=== PATIENT | male | born 1970 | race Caucasian/White ===

== ENCOUNTER 2022-05-01 00:24 | Day surgery (SDC) | payer OTHER, SELFPAY ==
[2022-04-16 10:16] VITALS: BMI 29.9
[2022-05-01 08:25] VITALS: BP 134/74; PULSE 77; RESP 18; TEMP 36.4; O2SAT 97
[2022-05-01] MEDS: LACTATED RINGERS 1,000 ML 150 ML IV CONT (08:32)
--- NOTE | 2022-05-01 08:55 | P.PNAN_ITS ---
Anes - Initial Pre Proc Eval Procedure: Operation Date: 05/01/22 09:30 Proposed Procedures p Screening Colonoscopy - Sourav Lanier MD Date/Time: 05/01/22 08:55 Surgeon: Sourav Lanier MD Pre Op Diagnosis: neoplasm screening Patient Data Age: 51 Gender: M Height: 1.83 m Weight: 110.2 kg Last Vital Signs Temp 97.6 F 05/01/22 08:25 Pulse 77 05/01/22 08:25 Resp 18 05/01/22 08:25 BP 134/74 05/01/22 08:25 Pulse Ox 97 05/01/22 08:25 O2 Del Method Room Air 05/01/22 08:25 Allergies Allergy/AdvReac Type Severity Reaction Status Date / Time poison sumac extract Allergy RASH Verified 05/01/22 08:21 Home Medications Medication Instructions Recorded Confirmed Type alprazolam 1 mg tablet 1 mg PO BID PRN Anxiety 04/16/22 04/16/22 History aspirin 81 mg capsule 81 mg PO DAILY 04/16/22 04/16/22 History famotidine 20 mg tablet 20 mg PO BID 04/16/22 04/16/22 History hydrocodone 10 mg-acetaminophen 1 tablet PO QID PRN Pain 04/16/22 04/16/22 History 325 mg tablet rosuvastatin 20 mg tablet 20 mg PO DAILY 04/16/22 04/16/22 History tadalafil 20 mg tablet 20 mg PO PRN PRN Erectile 04/16/22 04/16/22 History Dysfunction Patient hx anesthesia problems: none Family hx anesthesia problems: none Results Review: All pre-operative results and documents have been reviewed as part of the pre- operative evaluation. [facility] Family History Family History (Updated 06/06/11 @ 14:43 by DOCTOR UNKNOWN) Other Diabetes mellitus Family history of cardiovascular disease Social History Social History Smoking packs per day: 1 Smoking cigarettes per day: 20.0 Years smoked: 30 Smoking pack-years: 30.00 Smoking status: Current every day smoker Tobacco type: cigarettes Alcohol intake: never Substance use: never Substance use type: does not use Living arrangements: with family Spiritual care concerns: No Anes - Eval Final PreProcedure Day of Procedure 05/01/22 08:55 Patient weight: obese Heart: regular rate and rhythm Lungs: clear to auscultation Airway: Mallampati scale Neurological: alert and oriented Last oral intake: >/= 8 hours ASA classification: III Emergent: no Anesthetic plan: proceed Anesthesia type and monitoring: general GIVS and standard monitoring Results Review: All pre-operative results and documents have been reviewed as part of the pre- operative evaluation. Informed Consent: The patient's anesthetic plan and its attendant risks and benefits were discussed with the patient/family/POA. Questions were solicited and answers provided to the satisfaction of the patient/family/POA.
--- NOTE | 2022-05-01 09:06 | PM.HPGS ---
History of Present Illness History of Present Illness Consent: Risks, benefits, and alternatives have been discussed and questions answered. Patient agrees to proceed with procedure. Chief complaint: neoplasm screening Narrative: Forrest Bell is a 51 year old male here for first screening colonoscopy Review of Systems Constitutional: Constitutional: Denies headache(s) and Denies weakness Eyes: Eyes: Denies blurry vision ENT: Reports Normal hearing present, Denies headache(s) and Denies neck pain Cardiovascular: Cardiovascular: Denies chest pain and Denies dyspnea Respiratory: Respiratory: Denies dyspnea Gastrointestinal: Gastrointestinal: Reports no additional gastrointestinal complaints Genitourinary: Genitourinary: Denies dysuria Musculoskeletal: Musculoskeletal: Denies neck pain Integumentary/Breasts: Skin/Breast: Denies dry skin Neurologic: Reports Normal hearing present, Denies headache(s) and Denies weakness Psychiatric: Psychiatric: Denies anxiety Endocrine: Endocrine: Denies change in body appearance Hematologic/Lymphatic: Hematologic/Lymphatic: Denies easy bleeding Allergic/Immunologic: Allergic/Immunologic: Denies urticaria [facility] Past Medical History Medical History (Updated 05/01/22 @ 09:06 by Sourav Lanier MD) Colon cancer screening Family History Family History (Updated 06/06/11 @ 14:43 by DOCTOR UNKNOWN) Other Diabetes mellitus Family history of cardiovascular disease Social History Social History Smoking packs per day: 1 Smoking cigarettes per day: 20.0 Years smoked: 30 Smoking pack-years: 30.00 Smoking status: Current every day smoker Tobacco type: cigarettes Alcohol intake: never Substance use: never Substance use type: does not use Living arrangements: with family Spiritual care concerns: No Meds Home Medications and Allergies Home Medications Medication Instructions Recorded Confirmed Type alprazolam 1 mg tablet 1 mg PO BID PRN Anxiety 04/16/22 04/16/22 History aspirin 81 mg capsule 81 mg PO DAILY 04/16/22 04/16/22 History famotidine 20 mg tablet 20 mg PO BID 04/16/22 04/16/22 History hydrocodone 10 mg-acetaminophen 1 tablet PO QID PRN Pain 04/16/22 04/16/22 History 325 mg tablet rosuvastatin 20 mg tablet 20 mg PO DAILY 04/16/22 04/16/22 History tadalafil 20 mg tablet 20 mg PO PRN PRN Erectile 04/16/22 04/16/22 History Dysfunction Allergies Allergy/AdvReac Type Severity Reaction Status Date / Time poison sumac extract Allergy RASH Verified 05/01/22 08:21 Vital Signs Vital Signs - 24 hr 05/01/22 08:25 Temperature 97.6 F Pulse Rate 77 Respiratory Rate 18 Blood Pressure 134/74 Pulse Oximetry 97 Oxygen Delivery Room Air Exam Const: General: comfortable and no acute distress HENMT: General nose exam: Normal nares present Eyes: General: appearance normal, both eyes and all related structures Neck: Neck: no JVD Resp: Auscultation: clear to auscultation bilaterally Cardio: Rate: regular rate Rhythm: regular rhythm GI: Inspection: non-distended GI Palp: Yes Soft to palpation Skin: General skin exam: normal color Neuro: General: gait normal Speech: normal speech Extrem: General: normal to inspection Psych: Mental Status: mental status grossly normal Assessment and Plan Assessment and plan (1) Colon cancer screening: Code(s): Z12.11 - Encounter for screening for malignant neoplasm of colon Status: Acute Assessment and Plan: colonoscopy
[2022-05-01 09:37] VITALS: BP 113/75; PULSE 55; RESP 20; O2SAT 97
[2022-05-01 09:47] VITALS: BP 125/83; PULSE 53; RESP 23; O2SAT 96
[2022-05-01 09:57] VITALS: BP 126/89; PULSE 54; RESP 21; O2SAT 98
== END 2022-05-01 10:07 | disposition home or self-care (01) ==
PROVIDERS: PCP Emergency Medicine; Visit Provider Internal Medicine Gastroenterology
PROC: 0DJD8ZZ Inspection of Lower Intestinal Tract, Via Natural or Artificial Opening Endoscopic (ICD-10-PCS; CPT 45378; principal; 2022-05-01 09:30)
DX: Z12.11 Encounter for screening for malignant neoplasm of colon (principal); D12.2 Benign neoplasm of ascending colon; D12.5 Benign neoplasm of sigmoid colon; K64.8 Other hemorrhoids; F17.210 Nicotine dependence, cigarettes, uncomplicated; Z79.82 Long term (current) use of aspirin; E66.9 Obesity, unspecified; Z68.32 Body mass index [BMI] 32.0-32.9, adult
CPT/HCPCS: 45385; 88305; J2704; J7120

== ENCOUNTER 2023-02-12 08:01 | Outpatient (CLI) | payer OTHER, SELFPAY ==
--- NOTE | ~2023-02-12 | CT_ITS ---
CT Scan of the Chest without Contrast: Clinical Indication: Lung cancer screening, history of nicotine dependence Technique: Contiguous sections were acquired throughout the chest without intravenous contrast. Dose reduction technique was used on this scan by utilizing automated exposure control and iterative recon struction technique. The dose-length product (DLP) was 283.41 mGy-cm. Findings: There is no evidence of any significant mediastinal, hilar or axillary lymphadenopathy. Calcified med iastinal lymph nodes are noted. The mediastinal soft tissues otherwise appear normal. There is no evidence of pleural or pericardial effusion. There is a circumscribed 1.1 cm noncalcified nodule along the right lung base (axial image 100, coron al image 91). Calcified left upper lobe granulomas noted. There is mild emphysematous change in the u pper lobes. Images through the upper abdomen reveal 3.9 cm low-density left adrenal lesion, consistent with adeno ma. Impression: 1.1 cm pleural-based circumscribed nodule the right lung base, as detailed above. According to Fleisc hner Society criteria, consider follow-up [address] scan or PET/CT. Tissue sampling would be very di fficult given location and size of the lesion. Evidence of prior granulomatous of disease. 3.9 cm left adrenal adenoma. Reviewed, dictated and finalized at [facility]. Impression: 1.1 cm pleural-based circumscribed nodule the right lung base, as detailed abov e. According to Fleischner Society criteria, consider follow-up [address] scan or PET/CT. Tissue sampling would be very difficult given location and size of the lesion. Evidence of prior granulomatous of disease. 3.9 cm left adrenal adenoma.
== END 2023-02-12 08:02 | disposition home or self-care (01) ==
PROVIDERS: PCP Emergency Medicine; Visit Provider Emergency Medicine
DX: Z12.2 Encounter for screening for malignant neoplasm of respiratory organs (principal); Z87.891 Personal history of nicotine dependence; R91.8 Other nonspecific abnormal finding of lung field; D35.02 Benign neoplasm of left adrenal gland
CPT/HCPCS: 71271

== ENCOUNTER 2024-04-17 09:31 | Outpatient (CLI) | payer OTHER, SELFPAY ==
--- NOTE | ~2024-04-17 | CT_ITS ---
CT Scan of the Chest without Contrast: Clinical Indication: Lung cancer screening, nicotine dependence Technique: Contiguous sections were acquired throughout the chest without intravenous contrast. Dose reduction technique was used on this scan by utilizing automated exposure control and iterative recon struction technique. The dose-length product (DLP) was 286.52 mGy-cm. COMPARISON: 02/12/2023 Findings: There is no evidence of any significant mediastinal, hilar or axillary lymphadenopathy. The mediastin al soft tissues appear normal. There is no evidence of pleural or pericardial effusion. There is mild to moderate emphysema. Calcified left upper lobe granuloma present. Stable 1.1 cm right basilar pulmonary nodule. Images through the upper abdomen reveal a 4 cm left adrenal myelolipoma. Impression: Lung RADS 2: Benign appearance. 12 month follow-up screening CT advised. Reviewed, dictated and finalized at [facility]. Impression: Lung RADS 2: Benign appearance. 12 month follow-up screening CT advised.
== END 2024-04-17 09:32 | disposition home or self-care (01) ==
PROVIDERS: PCP Emergency Medicine; Visit Provider Emergency Medicine
DX: Z12.2 Encounter for screening for malignant neoplasm of respiratory organs (principal); Z87.891 Personal history of nicotine dependence
CPT/HCPCS: 71271

== ENCOUNTER 2025-08-09 10:47 | Outpatient (CLI) | payer OTHER, SELFPAY ==
--- NOTE | ~2025-08-09 | CT_ITS ---
EXAMINATION:CT lung screening DATE: 08/09/2025 11:04 INDICATION: Personal history of nicotine dependence. Current smoker with 39 pack year history. TECHNIQUE: Computed tomography (CT) of the chest was performed without intravenous contrast. Automated exposure control and iterative reconstruction technique were employed. The dose-length product (DLP) was 224.12 mGy-cm. COMPARISON: Chest CT 04/17/2024, 02/12/23 FINDINGS: There is moderate emphysema. There is mild atelectasis bilaterally. Calcified left lung nodules and calcified left hilar lymph nodes are consistent with old granulomatous disease. There is a chronic 10 mm nodule at right lung base. There is a 3 mm nodule in right upper lobe. There is a 2 mm nodule in right upper lobe. There is a 3 mm nodule in left upper lobe. No pleural effusion. The heart size is normal. There are coronary artery calcifications. No pericardial effusion. There are changes of cholecystectomy. There is a 4.7 cm mass in the left adrenal gland containing fat, consistent with a myelolipoma. There is mild thoracic spondylosis. There is mild chronic anterior wedging of multiple vertebral bodies. IMPRESSION: 1. Lung-RADS category 2: Benign appearance or behavior. Continue annual screening with noncontrast low-dose chest CT in 12 months. Reviewed, dictated and finalized at location E. IMPRESSION: 1. Lung-RADS category 2: Benign appearance or behavior. Continue annual screeni ng with noncontrast low-dose chest CT in 12 months.
--- OUTSIDE RECORDS SUMMARY | 2025-08-09 12:32 | XMS_ITS | Clinical Summary ---
Author Organization [facility] al Address [address] [place] [address] Care Team Providers Care Wad Blanking Press Adjuster Name Role Phone Gilberto Arana MD Primary Care Provider [phone] Allergies Active Allergy Reactions Criticality Noted Date Comments Poison Florecita Extract Hives,Itching,Other (See comments) Medium 10/24/2018 Also get white pus pockets Medications ALPRAZolam (XANAX) 1 mg tablet TAKE 1 TABLET BY MOUTH TWICE A DAY AVOID DRIVING/OPERATING MACHINES 0 8 Active atorvastatin (LIPITOR) 80 mg tablet Take 1 tablet (80 mg total) by mouth daily 1 8 Active HYDROcodone-ac etaminophen (NORCO) 10-325 mg per tabletIndicati ons:Pain TAKE 1 TABLET BY MOUTH EVERY 6 HOURS NEEDED FOR PAIN AVOID DRIVING/OPERATING MACHINES 0 8 Active pantoprazole (PROTONIX) [address] for susp in packet Active HYDROcodone-ac etaminophen (VICODIN) 5-300 mg per tablet Active raNITIdine (ZANTAC) 75 mg tablet Active nicotine (NICODERM CQ) 14 mg APPLY 1 PATCH EVERY DAY 0 9 Active famotidine (PEPCID) 20 mg tablet 0 Active rosuvastatin (CRESTOR) 20 mg tablet 0 Active amoxicillin (AMOXIL) 875 mg tablet Take 875 mg by mouth every 12 (twelve) hours 0 Active aspirin 81 mg chewable tablet Take 1 tablet (81 mg total) by mouth daily Active albuterol HFA (Ventolin HFA) 90 mcg/actuation inhaler inhale 2 puff by inhalation route every 4 - 6 hours as needed as needed 3 Active sildenafiL (VIAGRA) 100 mg tablet TAKE ONE TABLET BY MOUTH APPROXIMATELY ONE HOUR BEFORE SEXUAL ACTIVITY. DO NOT USE MORE THAN ONE DOSE DAILY Active Active Problems Problem Noted Date Diagnosed Date Pheochromocytoma 06/12/2011 Surgical History Surgery Date Site/Laterality Comments ANKLE SURGERY Ankle Surgery - (Added by ALISON Conv) KNEE SURGERY Knee Surgery - (Added by ALISON Conv) Family History Medical History Relation Name Comments Cancer Father Diabetes Father Hypertension Father Diabetes Mother Hypertension Mother Relation Name Status Comments Father Mother Social History Tobacco Use Types Packs/Day Years Used Date Smoking Tobacco: Every Day Cigarettes 1 36 Smokeless Tobacco: Current Tobacco Cessation:Ready to Q uit: Not Asked; Counseling Given: Not Answered Comments: pack hx / Smoker Alcohol Use Standard Drinks/Week Comments Not Currently 0 (1 standard drink = 0.6 oz pur e alcohol) Sex and Gender Information Value Date Recorded Sex Assigned at Not on file 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 Gender Identity Not on file Sexual Orientation Not on file Obstetrics History Last Filed Vital Signs Vital Sign Reading Time Taken Comments Blood Pressure 158/78 09/18/2024 1:22 PM CDT Pulse 68 09/18/2024 1:22 PM CDT Temperature 36.5 C (97.7 F) 09/18/2024 1:22 PM CDT Respiratory Rate 16 09/18/2024 1:22 PM CDT Oxygen Saturation 96% 09/18/2024 1:22 PM CDT Inhaled Oxygen Concentration - - Weight 102.5 kg (226 lb) 09/18/2024 1:22 PM CDT Height 182.9 cm (6') 09/18/2024 1:22 PM CDT Body Mass Index 30.65 09/18/2024 1:22 PM CDT Plan of Treatment Health Maintenance Due Date Last Done Comments Colon Cancer Screening-Colonoscopy 1971 Depression Screening 1971 Hepatitis C Screening 1971 Prostate Cancer Screening-PSA 1971 DTaP/Tdap/Td Vaccine (1 - Tdap) 1982 Hepatitis B Screening 1989 Regular Well Visit/Exam 18-64 1989 Pneumococcal vaccine <65 (1 of 2 - PCV) 1990 Lung Cancer Screening 2021 Zoster Vaccine (1 of 2) 2021 Influenza Vaccine (#1) 2025 Insurance [facility] Care Teams Wad Blanking Press Adjuster Relationship Specialty Start Date End Date Gilberto Arana MD PCP - General 05/22/17
--- OUTSIDE RECORDS SUMMARY | 2025-08-09 12:32 | XMS_ITS | Clinical Summary ---
Author Organization [facility] Address [address] [place] [address] Care Team Providers Care Retirement Plan Specialist Name Role Phone Gilberto Arana MD Primary Care Provider [phone] Source Comments [facility],non-owned Affiliates and Associated Physician Practices is amultiple site organization consisting of ambulatory clinics and hospital sitesin [place], [place], [place] and [place]. This disclosure is being madepursuant to the Care Everywhere program and may not contain all information available regarding this patient. Last updated 18.[facility] Allergies Active Allergy Reactions Criticality Noted Date Comments Extract Of Poison Florecita Urticaria,Itching Medium 018 Also get white pus pockets Medications * Be aware that medications may not be up to date on this document. Alwaysverify current medications with the patient. ALPRAZolam (XANAX) 1 MG tablet Take 1 (one) tablet by mouth 2 times daily as needed 1 Active aspirin (ASPIRIN) 81 MG chew tablet Take 1 (one) tablet by mouth once daily Active famotidine (PEPCID) 20 MG tablet Take 1 (one) tablet by mouth every 12 hours 0 Active HYDROcodone-ac etaminophen (NORCO) 10-325 MG tablet Take 1 (one) tablet by mouth 4 times daily as needed 1 Active rosuvastatin (CRESTOR) 20 MG tablet Take 1 (one) tablet by mouth every 24 hours 0 Active albuterol HFA (Proventil; Ventolin; Proair) 108 (90 Base) MCG/ACT inhaler INHALE 1 PUFF BY MOUTH EVERY 4 TO 6 HOURS NEEDED FOR SHORTNESS OF BREATH 4 Active sildenafil (Viagra) 100 MG tablet TAKE 1 TABLET BY MOUTH ONCE DAILY NEEDED APPROXIMATELY 1 HOUR BEFORE SEXUAL ACTIVITY NEEDED Active amoxicillin (Amoxil) 500 MG capsule Take 1 (one) capsule by mouth 3 times daily 5 Active ciprofloxacin (Cipro) 500 MG tablet Take 1 (one) tablet by mouth every 12 hours 5 Active Active Problems Problem Noted Date Diagnosed Date Other viral warts 06/22/2021 Seborrheic keratosis, inflamed 06/22/2021 Seborrheic keratosis 06/22/2021 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 MONIKA ) 07/13/2025 1:00 PM CDT Office Visit [facility] - Dermatology [address] [place] [phone] Rey Keller PA-C Inflamed seborrheic keratosis (Primary Dx); Seborrheic keratoses; Jacob angioma; Lentigines; Multiple benign melanocytic nevi of both upper extremities, both lower extremities, and trunk 07/13/2025 Travel 07/06/2025 Telephone [facility] - Urology [address] [place] [phone] Ryan Schulz PA Results 07/06/2025 Telephone [facility] - Urology [address] [place] [phone] Ryan Schulz PA Results 07/02/2025 1:26 PM CDT - 07/02/2025 11:59 PM CDT Hospital Encounter [facility] MRI [address] [place] [phone] Ryan Schulz PA Discharge Disposition: Home or Self Care 07/02/2025 Travel from Last 3 Months Family History Medical History Relation Name Comments None Known Brother None Known Father None Known Maternal Aunt None Known Maternal Grandfather None Known Maternal Grandmother None Known Maternal Uncle None Known Mother None Known Other None Known Paternal Aunt None Known Paternal Grandfather None Known Paternal Grandmother None Known Paternal Uncle None Known Sister Asthma Neg Hx CVA Neg Hx Cancer - Breast Neg Hx Cancer - Other Neg Hx Cancer - Skin, Melanoma Neg Hx Cancer - Skin, Non Melanoma Neg Hx Eczema Neg Hx Hemophilia Neg Hx Psoriasis Neg Hx Relation Name Status Comments Brother Father Maternal Aunt Maternal Grandfather Maternal Grandmother Maternal Uncle Mother Other Paternal Aunt Paternal Grandfather Paternal Grandmother Paternal Uncle Sister Social History Tobacco Use Types Packs/Day Years Used Date Smoking Tobacco: Every Day Cigarettes Smokeless Tobacco: Never Tobacco Cessation:Ready to Q uit: Yes; Counseling Given: Yes Sex and Gender Information Value Date Recorded Sex Assigned at Not on file Legal Sex Male 11:08 AM CDT Gender Identity Not on file Sexual Orientation Not on file Last Filed Vital Signs Vital Sign Reading Time Taken Comments Blood Pressure 131/74 04/23/2025 10:26 AM CDT Pulse 60 04/23/2025 10:26 AM CDT Temperature 36.4 C (97.6 F) 04/23/2025 10:26 AM CDT Respiratory Rate - - Oxygen Saturation 99% 04/23/2025 10:26 AM CDT Inhaled Oxygen Concentration - - Weight 101.2 kg (223 lb) 04/23/2025 10:26 AM CDT Height 182.9 cm (6') 04/23/2025 10:26 AM CDT Body Mass Index 30.24 04/23/2025 10:26 AM CDT Plan of Treatment Upcoming Encounters Date Type Department Care Team (Late st Contact Info) Description 04/08/2026 11:00 AM CDT Office Visit [facility] - Urology [address] [place] [phone] Ryan Schulz PA [address] [place] [phone] 07/19/2026 1:00 PM CDT Office Visit [facility] - Dermatology [address] [place] [address] Rey Keller PA-C [address] [place] [address] Health Maintenance Due Date Last Done Comments COLOGUARD (AGES 45-75) - COL ON CA SCREENING 1971 COLON MONITORING 1971 COLONOSCOPY - COLON CA SCREENING 1971 CT COLONOGRAPHY - COLON CA SCREENING 1971 Colorectal Cancer Screening 1971 FIT - COLON CA SCREENING 1971 FLEX SIG - COLON CA SCREENING 1971 HIV SCREENING 1986 HEPATITIS C SCREENING 12/08/1989 DTAP/TDAP/TD VACCINES (1 - Tdap) 1990 HEPATITIS B VACCINE (1 of 3 - 19+ 3-dose series) 1990 PNEUMOCOCCAL VACCINE 50+ (1 of 2 - PCV) 1990 ZOSTER VACCINE (1 of 2) 2021 DEPRESSION SCREENING 11/25/2024 SCREENING FOR DIABETES 04/23/2025 COVID-19 VACCINE (1 - 2023-2 5 season) 2025 INFLUENZA VACCINE (#1) 2025 HIB VACCINE Aged Out No longer eligi ble based on patient's age to complete this topic HPV VACCINE Aged Out No longer eligi ble based on patient's age to complete this topic MENINGOCOCCAL (Group B) VACC INE SHARED DECISION-MAKING Aged Out No longer eligibl e based on patient's age to complete this topic MENINGOCOCCAL GROUPS A/C/Y/W VACCINE Aged Out No longer eligible b ased on patient's age to complete this topic Procedures Procedure Name Priority Date/Time Associated Diagnosis Comments SD DESTRUCT BENIGN LESION, 1-14 Routine 07/13/2025 2:34 PM CDT Inflamed seborrheic keratosis MRI PROSTATE W 3D WWO CONTRAST Routine 07/02/2025 3:13 PM CDT Elevated PSA from Last 3 Months Results * SD DESTRUCT BENIGN LESION, 1-14 (07/13/2025 2:34 PM CDT) Narrative Rey Keller PA-C - 07/13/2025 2:34 PM CDT Rey Keller PA-C 07/13/2025 4:35 PM Derm - Benign Lesion Destruction Date/Time: 07/13/2025 2:34 PM Performed by: Rey Keller PA-C Authorized by: Rey Keller PA-C Indication(s): inflamed seborrheic keratosis Consent given by: patient Consent type: verbal Risks discussed with patient: pain, blistering, scar formation, skin color change and need for further testing/treatment. Consent type: verbal Procedure details: Anesthesia: none Body area 1: Body area: trunk Trunk location: L flank Lesions in this body area: 1 Total number of lesions: 1 Destruction method: cryotherapy Cryotherapy cycles: 2 Cryotherapy time per cycle (seconds): 8-10 Wound dressing: none Complications: none Wound care discussed with patient? yes us Rey Keller PA-C PROCEDURE/MINOR SURGICAL ORDERA BLES Final Result * MRI Prostate W 3D Wwo Contrast (07/02/2025 3:13 PM CDT) Anatomical Region Laterality Modality Pelvis Magnetic Resonan ce Angiography 07/05/2025 8:05 PM CDT Impressions 07/05/2025 8:13 PM CDT IMPRESSION: There are no suspicious lesions in the prostate (PI-RADS 3 or greater) > Interpreting Provider: Jefry Belle MD on 07/05/2025 8:13 PM Narrative 07/05/2025 8:13 PM CDT PROCEDURE: MRI PROSTATE W 3D WWO CONTRAST, DATE/TIME OF EXAM: 07/02/2025 3:13 PM, LOCATION [facility] INDICATION: R97.20: Elevated PSA ADDITIONAL CLINICAL INFORMATION: Ordering Provider Reason For Exam: Technologist Note: Additional: COMPARISON: None. Contrast: GADOBENATE DIMEGLUMINE 529 MG/ML IV SOLN:20 mL FINDINGS: Prostate volume: 47 cc The prostate transition zone is enlarged with benign prostatic hyperplasia. The prostate was assessed using the PI-RADS 2 scoring system. There are no suspicious lesions in the prostate (PI-RADS 3 or greater) Other findings: The urinary bladder is normal. Visualized rectum and bowel loops are normal. Procedure Note Jefry Belle MD - 07/05/2025 PROCEDURE: MRI PROSTATE W 3D WWO CONTRAST, DATE/TIME OF EXAM: 07/02/2025 3:13 PM, LOCATION [facility] INDICATION: R97.20: Elevated PSA ADDITIONAL CLINICAL INFORMATION: Ordering Provider Reason For Exam: Technologist Note: Additional: COMPARISON: None. Contrast: GADOBENATE DIMEGLUMINE 529 MG/ML IV SOLN:20 mL FINDINGS: Prostate volume: 47 cc The prostate transition zone is enlarged with benign prostatichyperplasia. The prostate was assessed using the PI-RADS 2 scoring system. There are no suspicious lesions in the prostate (PI-RADS 3 or greater) Other findings: The urinary bladder is normal. Visualized rectum andbowel loops are normal. IMPRESSION: There are no suspicious lesions in the prostate (PI-RADS 3 or greater) > Interpreting Provider: Jefry Belle MD on 07/05/2025 8:13 PM Ryan Patel MR ORDERABLES Final Result from Last 3 Months Insurance Care Teams Retirement Plan Specialist Relationship Specialty Start Date End Date Gilberto Arana MD PCP - General 06/17/21
== END 2025-08-09 10:48 | disposition home or self-care (01) ==
PROVIDERS: PCP Emergency Medicine; Visit Provider Emergency Medicine
DX: Z12.2 Encounter for screening for malignant neoplasm of respiratory organs (principal); Z87.891 Personal history of nicotine dependence
CPT/HCPCS: 71271